=== PATIENT | female | born 1955 | race Caucasian/White ===

== ENCOUNTER → 2017-04-27 | Outpatient (CLI) | payer BC ==
--- NOTE | 2017-05-01 18:20 | PCVCIMAG ---
APPROVED REPORT Study performed: 04/27/2017 13:41:08 EXAM: Comprehensive 2D, Doppler, and color-flow Echocardiogram Patient Location: Out-Patient 2D Dimensions LVEF(%): 50.01 (>50%) IVSd: 9.59 (7-11mm) LVDd: 36.37 mm PWd: 9.05 (7-11mm) LVDs: 27.35 (25-40mm) Left Atrium: 30.62 (27-40mm) Aortic Root: 26.92 mm LV Single Plane 4CH: 66.07 % LV Single Plane 2CH: 67.34 %Adrian's LVEF: 66.71 % Biplane EF: 67.1 % Volumes Left Atrial Volume (Systole) Single Plane 4CH: 35.67 mLSingle Plane 2CH: 37.17 mL Aortic Valve AoV Peak Shashank.: 1.54 m/s AO Peak Gr.: 9.49 mmHgLVOT Max P.78 mmHg LVOT Max V: 1.20 m/s Mitral Valve E/A Ratio: 1.9 MV Decel. Time: 155.76 ms MV E Max Shashank.: 0.99 m/s MV A Shashank.: 0.51 m/s IVRT: 86.51 ms Pulmonary Valve PV Peak Shashank.: 0.90 m/sPV Peak Gr.: 3.22 mmHg Pulmonary Vein P Vein S: 0.47 m/sP Vein A: 0.40 m/s P Vein D: 0.63 m/sP Vein A Dur.: 138.4 msec P Vein S/D Ratio: 0.75 Tricuspid Valve TR Peak Shashank.: 2.60 m/s TR Peak Gr.: 27.02 mmHg Left Ventricle The left ventricle is normal size. There is normal LV segmental wall motion. There is normal left ventricular wall thickness. Left ventricular systolic function is normal. The left ventricular ejection fraction is within the normal range. The left ventricular diastolic function is normal. Right Ventricle The right ventricle is normal size. The right ventricular systolic function is normal. Atria The left atrium size is normal. The right atrium size is normal. Aortic Valve The aortic valve is normal in structure. No aortic regurgitation is present. There is no aortic valvular stenosis. Mitral Valve The mitral valve is normal in structure. There is no mitral valve regurgitation noted. No evidence of mitral valve stenosis. Tricuspid Valve The tricuspid valve is normal in structure. There is no tricuspid valve regurgitation noted. Pulmonic Valve The pulmonary valve is normal in structure. There is no pulmonic valvular regurgitation. Great Vessels The aortic root is normal in size. IVC is normal in size and collapses with >50% inspiration Pericardium There is no pericardial effusion. <Conclusion> The left ventricle is normal size. There is normal left ventricular wall thickness. Left ventricular systolic function is normal. The left ventricular ejection fraction is within the normal range. The left ventricle is normal size. There is normal left ventricular wall thickness. Left ventricular systolic function is normal. The left ventricular ejection fraction is within the normal range. The left ventricular diastolic function is normal. The right ventricle is normal size. The right ventricular systolic function is normal. The left atrium size is normal. The aortic valve is normal in structure. There is no aortic valvular stenosis. The mitral valve is normal in structure. The pulmonary valve is normal in structure. The aortic root is normal in size. There is no pericardial effusion.
== END | disposition home or self-care (01) ==
LOC: PCVCIMAG 13:00
PROVIDERS: ATTEND Internal Medicine
DX: R07.9 Chest pain, unspecified (principal); I07.1 Rheumatic tricuspid insufficiency; E78.00 Pure hypercholesterolemia, unspecified; R20.0 Anesthesia of skin; I65.21 Occlusion and stenosis of right carotid artery
CPT/HCPCS: 93017; 93306; 93880